=== PATIENT | female | born 2000 | race African-American/Black ===

== ENCOUNTER 2023-05-12 12:51 | Emergency (ER) | payer BC, SELFPAY ==
[2023-05-12 13:01] VITALS: BP 147/85; PULSE 75; RESP 18; TEMP 36.7; O2SAT 98
--- NOTE | 2023-05-12 13:31 | PC.NURSE ---
Dr. Ruby at bedside to assess pt.
--- NOTE | 2023-05-12 14:24 | ED.GENADULT ---
HPI - General Adult General Chief complaint: Anxiety Stated complaint: ANXIETY ATTACKS Time Seen by Provider: 05/12/23 13:11 History of Present Illness HPI narrative: Patient is a 22-year-old female who presents to the ER with anxiety. She reports that she has had a lot of stress at home related to her siblings having depression and she is only 1 working. She has no thoughts of injuring herself or harming others. No previous hospitalizations. She recently moved here from [place] which is also causing stress. She went to an urgent care and they told her they were unable to help her with her mental health. Review of Systems Review of Systems: All systems reviewed & are unremarkable except as noted in HPI and below Constitutional: Constitutional: Denies chills and Denies fever(s) Gastrointestinal: Gastrointestinal: Denies abdominal pain, Denies nausea and Denies vomiting Psychiatric: Psychiatric: Reports anxiety, Reports depression, Denies homicidal ideation and Denies suicidal ideation PMFSH Past Medical History Medical History (Updated 05/12/23 @ 18:59 by Dwayne Ruby MD) Healthy female adult Surgical History Surgical History (Updated 05/12/23 @ 18:59 by Dwayne Ruby MD) H/O anterior cruciate ligament surgery Left side Social History Social History Substance use type: does not use Exam Narrative: GENERAL: Well-appearing, well-nourished, and in no acute distress. HEAD: Normocephalic, atraumatic. EYES: PERRL and EOMI. ENT: Mucous membranes moist. CHEST: Clear to auscultation. No respiratory distress. HEART: Regular rate and rhythm. Normal peripheral pulses. EXTREMITIES: Normal range of motion. No edema. NEURO: Alert and oriented x3. PSYCH: Normal mood and affect. Course Course Emergency Course: Patient given resources for [facility]. No active mental health crisis to warrant further evaluation. Vital Signs Vital signs: Vital Signs Temperature 98.1 F 05/12/23 13:01 Pulse Rate 75 05/12/23 13:01 Respiratory Rate 18 05/12/23 13:01 Blood Pressure 147/85 H 05/12/23 13:01 Pulse Oximetry 98 05/12/23 13:01 Oxygen Delivery Room Air 05/12/23 13:01 Temperature 98.1 F 05/12/23 13:01 Pulse Rate 75 05/12/23 13:01 Respiratory Rate 18 05/12/23 13:01 Blood Pressure 147/85 H 05/12/23 13:01 Pulse Oximetry 98 05/12/23 13:01 Oxygen Delivery Room Air 05/12/23 13:01 Medical Decision Making Vital Signs Vital Signs: Vital Signs Temperature 98.1 F 05/12/23 13:01 Pulse Rate 75 05/12/23 13:01 Respiratory Rate 18 05/12/23 13:01 Blood Pressure 147/85 H 05/12/23 13:01 Pulse Oximetry 98 05/12/23 13:01 Oxygen Delivery Room Air 05/12/23 13:01 Temperature 98.1 F 05/12/23 13:01 Pulse Rate 75 05/12/23 13:01 Respiratory Rate 18 05/12/23 13:01 Blood Pressure 147/85 H 05/12/23 13:01 Pulse Oximetry 98 05/12/23 13:01 Oxygen Delivery Room Air 05/12/23 13:01 Discharge Plan Discharge Clinical Impression: Anxiety with depression Patient Disposition: Home, Self-Care Condition: Stable Instructions: Depression (ED), Anxiety (ED) Additional Instructions: You may contact [facility] at [phone] at 6 AM daily to request a mental health assessment with same-day scheduling. If you tried this multiple times and failed to get an appointment you may dial [phone] for a crisis appointment. Return to the ER if you have thoughts of harming yourself or others, you you have fever over 100.4 ?F, you have additional concerns. Follow-up/Referrals: PHYSICIAN,STOVE CARRIAGE OPERATOR [Primary Care Provider] -
== END 2023-05-12 14:43 | disposition home or self-care (01) ==
PROVIDERS: Emergency Provider Emergency Medicine
DX: F41.9 Anxiety disorder, unspecified (principal); F32.A Depression, unspecified
CPT/HCPCS: 99281

== ENCOUNTER 2023-05-24 12:54 | Emergency (ER) | payer BC, SELFPAY ==
[2023-05-24 12:57] VITALS: BP 144/101; PULSE 73; RESP 17; TEMP 36.4; O2SAT 100
--- NOTE | 2023-05-24 14:20 | ED.GENADULT ---
[facility] Adult General Chief complaint: Anxiety Stated complaint: anxiety/depression Time Seen by Provider: 05/24/23 13:29 Source: patient Mode of arrival: ambulatory Limitations: no limitations History of Present Illness HPI narrative: This is a 22-year-old female who presents to the ED with chief complaint of anxiety, depression, panic attacks ongoing for the past couple of weeks. She has recently moved here from [place] and is living with her brothers. She reports that she has been dealing with a lot of stress regarding her family and work. She states her brother tried to attempt suicide recently and her other brother has expressed suicidal thoughts which is causing her a great deal of stress. She reports that she was seen here couple of weeks ago and [facility] and was told Wednesday that they did not have any beds and that she would have to wait. She also reports that she tried to make a primary care doctor appointment but was unable to be seen until June 23. She expresses specific concern over her work needing a note stating that she has been seen multiple times in dealing with all of this. Denies SI or HI. Related Data Allergies Allergy/AdvReac Type Severity Reaction Status Date / Time No Known Allergies Allergy Verified 05/24/23 13:35 Review of Systems Review of Systems: All systems as dictated in [facility] Past Medical History Medical History (Updated 05/24/23 @ 14:25 by Josh Duncan PA-C) Healthy female adult Surgical History Surgical History (Updated 05/12/23 @ 18:59 by Dwayne Ruby MD) H/O anterior cruciate ligament surgery Left side Social History Social History Substance use type: does not use Exam Narrative: GENERAL: Well-appearing, well-nourished, and in no acute distress. HEAD: Normocephalic, atraumatic. EYES: PERRLA and EOMI. ENT: Nares clear, no rhinorrhea or epistaxis. Mucous membranes moist. Oropharynx without tonsillar hypertrophy exudate or other lesions. NECK: Supple. No adenopathy or masses. CHEST: No respiratory distress. Clear to auscultation. No wheezes rales or rhonchi HEART: Regular rate and rhythm. No murmur heard. Normal peripheral pulses. ABDOMEN: Soft, nontender, nondistended, normal active bowel sounds. MSK: Normal range of motion. No edema. SKIN: Warm, dry, no rash. NEURO: Alert and oriented x3. No focal deficits. PSYCH: Anxious mood. Appropriate affect. No SI. No HI Course Vital Signs Vital signs: Vital Signs Temperature 97.6 F 05/24/23 12:57 Pulse Rate 73 05/24/23 12:57 Respiratory Rate 17 05/24/23 12:57 Blood Pressure 144/101 H 05/24/23 12:57 Pulse Oximetry 100 05/24/23 12:57 Oxygen Delivery Room Air 05/24/23 12:57 Temperature 97.6 F 05/24/23 12:57 Pulse Rate 73 05/24/23 12:57 Respiratory Rate 17 05/24/23 12:57 Blood Pressure 144/101 H 05/24/23 12:57 Pulse Oximetry 100 05/24/23 12:57 Oxygen Delivery Room Air 05/24/23 12:57 Medical Decision Making MDM Narrative Medical decision making narrative: This is a 22-year-old female who presents to the ED with chief complaint of recent anxiety. She is needing a work note. Vitals are normal. Exam is benign. She does appear anxious but is not having any suicidal or homicidal ideations. She is simply here to get a work note to present to her work as she has missed several days of work with this. She is currently waiting on her PCP appointment in June as well as for the [place] [facility] to get back to her regarding the addressing her mental health concerns. A patient is very reasonable and is just requesting something to present to her work so she does not lose her job. I have written her a work note but and informed her that I cannot fill out any [facility] official paperwork. She is understanding of this. She seems to indicate that the work note I can provide today will be enough.
== END 2023-05-24 15:16 | disposition home or self-care (01) ==
LOC: ANHED 14:52
PROVIDERS: Emergency Provider Physician Assistant
DX: F41.9 Anxiety disorder, unspecified (principal)
CPT/HCPCS: 99281

== ENCOUNTER 2025-07-21 15:35 | Emergency (ER) | payer SELFPAY ==
--- OUTSIDE RECORDS SUMMARY | 2017-02-22 04:05 | XMS_ITS | Continuity of Care Document ---
Author Organization [facility] Address [address] [facility] [address] [place] [address] Phone Care Team Providers Care Terminal Clerk Name Role Phone Harley Rob MD Unavailable Unavailable Allergies, Adverse Reactions, Alerts Substance Reaction Status Criticality No Known Allergies Active No Inform ation Medications Medication Instructions Dosage Effective Dates (start - stop) Status Comments ibuprofen 200 mg capsule take 1 capsule by oral route every 6 hours as needed 200 MG - Active Procedures Procedure Date POSTOP FOLLOW-UP VISIT POSTOP FOLLOW-UP VISIT POSTOP FOLLOW-UP VISIT OFFICE/OUTPATIENT VISIT EST OFFICE/OUTPATIENT VISIT EST OFFICE/OUTPATIENT VISIT EST OFFICE/OUTPATIENT VISIT NEW Advance Directives Directive Yes / No Effective Date File Name No Information Encounters Encounter Description Practice Location Reason(s) For Visit Diagnoses Date Provider Providers Copied on Encounter [facility], [address] [place] [address], [facility], tel:[phone] [facility] Follow Up of LT ACL 3\20\17 (chief complaint) Status post reconstruction of anterior cruciate ligament 7 Darron Souza. [address] [place] [address], [id number] . tel: [phone] [facility], [address] [place] [address], [facility], tel:[phone] [facility] Status post reconstruction of anterior cruciate ligament 7 Jemima Chowdhury. [address] [place], [place] [address] [id number] . tel: [phone] [facility], [address] [facility] [address], [place], [address], [place] [phone] [facility] PO LT KNEE (chief complaint) Status post reconstruction of anterior cruciate ligament Apr-0 7 Darron Souza. [address] [place], [place], [id number] . tel: [phone] [facility], [address] [place] [address] 200, [place], [address], [place] [phone] [facility] Other spontaneous disruption of anterior cruciate ligament of left knee 7 Darron Souza. [address] [place] [address], [id number] . tel: [phone] OFFICE/OUTPA TIENT VISIT EST [facility], [address] [place] [address] 200, [place], [address], [place] [phone] [facility] Follow Up of LT KNEE (chief complaint) Complex tear of lateral meniscus of left knee as current injury, initial encounterRuptur e of anterior cruciate ligament of left knee, initial encounter 7 Jemima Chowdhury. [address] [facility] [address], [place], [place], [id number] . tel: [phone] OFFICE/OUTPA TIENT VISIT EST [facility], [address] [place] [address] 200, [place], [address], [place] [phone] [facility] LT KNEE (chief complaint) Body mass index (BMI) 28.0-28.9, adultRupture of anterior cruciate ligament of left knee, initial encounterComple x tear of lateral meniscus of left knee as current injury, initial encounter 7 Jemima Chowdhury. [address] [facility] [address], [place], [place], [id number] . tel: [phone] OFFICE/OUTPA TIENT VISIT EST [facility], [address] [place] [address] 200, [place], [address], [place] tel:[phone] [facility], [facility], initial encounter 7 Epifanio Heltonm. [address] [facility] [address], [place], [place], [id number] . tel: [phone] OFFICE/OUTPA TIENT VISIT [facility], [address] [facility] [address], [place], [address], [place] tel:[phone] [facility] Arturo Sprain of lateral collateral ligament of left knee, initial encounter 7 Tato Ayala. [address] [facility] [address], [place], [place], [id number] . tel: [phone] Family History Family Member Type Diagnosis Age At Onset No Information Payers Payer name Insurance type Covered constitution party ID Authoriza tion(s) Blue Access PPO E2 OT [id number] Social History Type Description Quantity Date Captured Comments Alcohol Use Details Unknown Caffeine Use Details Unknown Tobacco Use Status No Information Smoking Status No Information Sex Female Chief Complaint And Reason For Visit From encounter dated '02/22/2017 09:05'. Follow Up of LT ACL (chief complaint) Reason For Referral Reason For Referral No Information Plan Of Treatment Date Type Action Status Referral Ordered: MRI ANY JT LXTR C-MATRL LT knee Appointment date/timeframe: 11/25/2016 ordered Referral Ordered: KEN CRUZ COMPL 4/MORE VIEWS LT ordered History Of Present Illness Encounter Date Complaint History Of Prese nt Illness Follow Up of LT ACL 3\17 PO LT KNEE Follow Up of LT KNEE LT KNEE Functional Status Date Functional Assessmen t No Information Instructions Date Instruction Additional Infor mation Take medication as directed. Rel ated to Status post reconstruction of anterior cruciate ligament Activity as tolerated. Related t o Status post reconstruction of anterior cruciate ligament Ice as tolerated Related to Stat us post reconstruction of anterior cruciate ligament Elevate extremity above heart. R elated to Rupture of anterior cruciate ligament of left knee, initial encounter Immobilize as directed. Related to Rupture of anterior cruciate ligament of left knee, initial encounter Giving encouragement to exercise Related to Body mass index (BMI) 28.0-28.9, adult use ice as instructed Related to Complex tear of lateral meniscus of left knee as current injury, initial encounter Assessments Type Assessment Date assessment Status post reconstruction of an terior cruciate ligament Patient Care Teams Name Effective Dates (start - stop) Status Members No Information
--- OUTSIDE RECORDS SUMMARY | 2017-03-17 05:00 | XMS_ITS | Continuity of Care Document ---
Author Organization [facility] Address [address] [place] [address] [place] [id number] Phone Care Team Providers Care Reducing Machine Operator Name Role Phone Taylor MS, PT, ATC, Sheri Unavailable Karina vailable Procedures Procedure Date THERAPEUTIC EXERCISES NEUROMUSCULAR RE-ED MANUAL THERAPY FUNC ACTIVITY AQUATIC THERAPY 15 MIN HOT/COLD PACK ELECTRIC STIMULATION UNATT THERAPEUTIC EXERCISES NEUROMUSCULAR RE-ED MANUAL THERAPY FUNC ACTIVITY AQUATIC THERAPY 15 MIN HOT/COLD PACK ELECTRIC STIMULATION UNA THERAPEUTIC EXERCISES NEUROMUSCULAR RE-ED MANUAL THERAPY FUNC ACTIVITY HOT/COLD PACK ELECTRIC STIMULATION UNATT THERAPEUTIC EXERCISES NEUROMUSCULAR RE-ED MANUAL THERAPY FUNC ACTIVITY HOT/COLD PACK ELECTRIC STIMULATION UNATT THERAPEUTIC EXERCISES NEUROMUSCULAR RE-ED MANUAL THERAPY FUNC ACTIVITY ELECTRIC STIMULATION UNATT HOT/COLD PACK THERAPEUTIC EXERCISES NEUROMUSCULAR RE-ED MANUAL THERAPY FUNC ACTIVITY HOT/COLD PACK ELECTRIC STIMULATION UNATT THERAPEUTIC EXERCISES NEUROMUSCULAR RE-ED FUNC ACTIVITY ELECTRIC STIMULATION UNATT HOT/COLD PACK THERAPEUTIC EXERCISES NEUROMUSCULAR RE-ED MANUAL THERAPY FUNC ACTIVITY ELECTRIC STIMULATION UNATT THERAPEUTIC EXERCISES NEUROMUSCULAR RE-ED MANUAL THERAPY FUNC ACTIVITY HOT/COLD PACK ELECTRIC STIMULATION UNATT THERAPEUTIC EXERCISES NEUROMUSCULAR RE-ED MANUAL THERAPY FUNC ACTIVITY HOT/COLD PACK ELECTRIC STIMULATION UNATT THERAPEUTIC EXERCISES NEUROMUSCULAR RE-ED MANUAL THERAPY FUNC ACTIVITY HOT/COLD PACK ELECTRIC STIMULATION UNATT THERAPEUTIC EXERCISES NEUROMUSCULAR RE-ED MANUAL THERAPY FUNC ACTIVITY HOT/COLD PACK ELECTRIC STIMULATION UNATT [employer] THERAPEUTIC EXERCISES NEUROMUSCULAR RE-ED FUNC ACTIVITY HOT/COLD PACK ELECTRIC STIMULATION UNATT THERAPEUTIC EXERCISES NEUROMUSCULAR RE-ED MANUAL THERAPY FUNC ACTIVITY HOT/COLD PACK ELECTRIC STIMULATION UNATT THERAPEUTIC EXERCISES NEUROMUSCULAR RE-ED MANUAL THERAPY FUNC ACTIVITY HOT/COLD PACK ELECTRIC STIMULATION UNATT PT Re-Evaluation THERAPEUTIC EXERCISES HOT/COLD PACK THERAPEUTIC EXERCISES NEUROMUSCULAR RE-ED FUNC ACTIVITY HOT/COLD PACK ELECTRIC STIMULATION UNATT [employer] THERAPEUTIC EXERCISES NEUROMUSCULAR RE-ED FUNC ACTIVITY HOT/COLD PACK ELECTRIC STIMULATION UNATT THERAPEUTIC EXERCISES NEUROMUSCULAR RE-ED FUNC ACTIVITY HOT/COLD PACK ELECTRIC STIMULATION UNATT PT Evaluation Low Complexity THERAPEUTIC EXERCISES HOT/COLD PACK ELECTRIC STIMULATION UNATT Advance Directives Directive Yes / No Effective Date File Name No Information Encounters Encounter Description Practice Location Reason(s) For Visit Diagnoses Date Provider Providers Copied on Encounter [address], [id number], tel:[phone] [place] No Information Brandon Wade. [address] [place] [address], [facility], . tel:[phone] Referring Provider: Harley Pack, [address], [facility]. tel:[phone], [id number], tel:[phone] [place] No Information Tyrese pennington [address] [place] [address], [address], [facility], . tel:[phone] Referring Provider: Harley Pack, [address] [facility] [address], [place], [facility]. tel:[phone], [id number], tel:[phone] [place] No Information Tyrese pennington [address] [place] [address], [address], [place], [facility], . tel:[phone] Referring Provider: Harley Pack, [address], [place], [address]. tel:[phone] [address], [place], [place], [id number], tel:[phone] [place] No Information February-1 6-201 7 Tyrese pennington [address] [place] [address], [address], [place], [facility], . tel:[phone] Referring Provider: Harley Pack, [address], [place], [address]. tel:[phone] [address] [place] [address], [id number], tel:[phone] [place] No Information 1- 7 Misael Terrazas. [address] [place] [address], [address], [place], [facility], . tel:[phone] Referring Provider: Harley Pack, [address], [place], [address]. tel:[phone] [address] [place] [address], [id number], tel:[phone] [place] No Information February-0 9-201 7 Tyrese pennington [address] [place] [address], [address], [place], [facility], . tel:[phone] Referring Provider: Harley Pack, [address], [place], [address]. tel:[phone] [address], [place], [id number], tel:[phone] [place] No Information May-0 4-201 7 Misael Terrazas. [address] [place] [address], [address], [place], [facility], . tel:[phone] Referring Provider: Harley Pack, [address], [place], [address]. tel:[phone], [place], [place], [id number], tel:[phone] [place] No Information February-0 2-201 7 Tyrese pennington [address] [place] [address], [address], [place], [facility], . tel:[phone] Referring Provider: Harley Pack, [address] [facility] [address], [place], [address]. tel:[phone] [address], [place], [place], [id number], tel:[phone] [place] No Information Jan-2 7- 7 Tyrese pennington [address] [place] [address], [address], [place], [place], [facility], . tel:[phone] Referring Provider: Harley Pack, [address] [place] [address] [address], [place], [address]. tel:[phone] [address], [place], [place], [id number], tel:[phone] [place] No Information Jan-2 5- 7 Misael Terrazas. [address] [place] [address], [address], [place], [place], [facility], . tel:[phone] Referring Provider: Harley Pack, [address] [facility] [address], [place], [address]. tel:[phone] [address], [place], [place], [id number], tel:[phone] [place] No Information Jan-2 0-201 7 Tyrese pennington [address] [place] [address], [address], [place], [place], [facility], . tel:[phone] Referring Provider: Harley Pack, [address] [facility] [address], [place], [address]. tel:[phone] [address], [place], [place], [id number], tel:[phone] [place] No Information 7 Misael Terrazas. [address] [place] [address], [address], [place], [place], [facility], [place]. tel:[phone] Referring Provider: Harley Pack, [address] [facility] [address], [place], [address]. tel:[phone] [address], [place], [place], [id number], tel:[phone] [place] No Information Jan-1 7 Misael Terrazas. [address] [place] [address], [address], [place], [place], [facility], [place]. tel:[phone] Referring Provider: Harley Pack, [address] [facility] [address], [place], [facility]. tel:[phone] [address], [place], [place], [id number], [place] tel:[phone] [place] No Information 7 Tyrese pennington [address] [place] [address], [address], [place], [facility], [place]. tel:[phone] Referring Provider: Harley Pack, [address] [facility] [address], [place], [address]. tel:[phone] [address], [place], [place], [id number], [place] tel:[phone] [place] No Information Jan-0 7 Tyrese pennington [address] [place] [address], [address], [place], [facility], [place]. tel:[phone] Referring Provider: Harley Pack, [address] [facility] [address], [place], [address]. tel:[phone] [address], [place], [place], [id number], tel:[phone] [place] No Information Apr-0 6 7 Misael Terrazas. [address] [place] [address], [address], [place] [address], [place]. tel:[phone] Referring Provider: Harley Pack, [address] [facility] [address], [place], [address]. tel:[phone] [address], [place], [place], [id number], tel:[phone] [place] No Information Mar-1 6-201 7 Misael Terrazas. [address] [place] [address], [address] [address], . tel:[phone] Referring Provider: Harley Pack, [address] [facility] [address], [place], [address]. tel:[phone] [address] [facility], [place], [place], [id number], tel:[phone] [place] No Information Mar-1 4-201 7 Misael Terrazas. [address] [place] [address], [address] [address], . tel:[phone] Referring Provider: Harley Pack, [address] [facility] [address], [place], [address]. tel:[phone] [place] [address], [place], [place], [id number], tel:[phone] [place] No Information Mar-0 7-201 7 Misael Terrazas. [address] [place] [address], [address] [place] [address], . tel:[phone] Referring Provider: Harley Pack, [address] [facility] [address], [place], [facility]. tel:[phone] [address], [place], [place], [id number], tel:[phone] [place] Difficulty in walking, not elsewhere classifiedPain in left kneeStiffness of left knee, not elsewhere classifiedWeakness Sprain of anterior cruciate ligament of left knee, subsComplex tear of lat mensc, current injury, left knee, subs Mar-0 3-201 7 Misael Terrazas. [address] [place] [address], [address], [place], [address], . tel: [phone] Referring Provider: Harley Pack, [address], [place], [address]. tel:[phone] Family History Family Member Type Diagnosis Age At Onset No Information Payers Payer name Insurance type Covered constitution party ID Authorwillow roblero(s) [facility] Jeancarlos LAZARO [id number] RX O NLY Social History Type Description Quantity Date Captured Comments Sex Female Smoking Status No Information Chief Complaint And Reason For Visit No Information Reason For Referral Reason For Referral No Information History Of Present Illness Encounter Date Complaint History Of Prese nt Illness No Information Functional Status Date Functional Assessmen t No Information Instructions Date Instruction Additional Infor mation No Information Assessments Type Assessment Date No Information Patient Care Teams Name Effective Dates (start - stop) Status Members No Information
--- NOTE | ~2025-07-21 | XR_ITS ---
EXAMINATION: XR chest 2V, 07/21/2025 16:35 CDT HISTORY: cough COMPARISON: No comparisons available. Technique: 2 views obtained. Findings: The lungs are clear, no effusion. No pneumothorax. Heart is normal size. Mediastinal and hilar contours are within normal limits. Bony thorax no acute abnormality. Impression: No acute cardiopulmonary abnormality. Reviewed, dictated and finalized at location P. Impression: No acute cardiopulmonary abnormality.
[2025-07-21 15:37] VITALS: BP 142/70; PULSE 72; RESP 18; TEMP 36.6; O2SAT 100
--- NOTE | 2025-07-21 16:20 | ED_ITS ---
HPI - URI/Sore Throat General Chief Complaint: Upper Respiratory Infection Stated Complaint: lost her voice Time Seen by Provider: 07/21/25 15:45 History of Present Illness HPI Narrative: Patient is a 24-year-old female who presents to the ER with complaints of laryngitis. She reports on Wednesday her throat felt funny. Patient reports on Wednesday she started losing her voice. She reports her throat is sore now and endorses a slight cough along with increased mucus. Patient denies any headache, recent fevers, back pain, or abdominal pain. She denies any medical history relevant to this ER visit. Related Data Allergies Allergy/AdvReac Type Severity Reaction Status Date / Time No Known Allergies Allergy Verified 05/24/23 13:35 Review of Systems Review of Systems: All systems reviewed & are unremarkable except as noted in HPI and below PMFSH Past Medical History Medical History Healthy female adult Surgical History Surgical History H/O anterior cruciate ligament surgery Left side Social History Social History Substance use type: does not use Exam 2 Narrative: GENERAL: Well appearing, well-nourished, non-toxic, in no acute distress. HEAD: Normocephalic, atraumatic. NECK: Supple. No adenopathy, no masses. RESPIRATORY: Airway patent, respirations nonlabored. Clear to auscultation bilaterally, no rales, rhonchi, wheezing. CARDIOVASCULAR: Regular rate and rhythm without murmurs, rubs, or gallops. Peripheral pulses 2+ and equal bilaterally. ABDOMINAL: Soft, nontender, nondistended, no hepatosplenomegaly. Normoactive BS. MUSCULOSKELETAL: Moves all extremities. Strength/ROM intact without gross deformities. SKIN: Warm, dry, normal color. No rashes. NEURO: A&O X3. Speech clear. Cranial nerves II-XII intact. No ataxic movements. PSYCHIATRIC: Appropriate mood and affect. Normal interaction. Course Vital Signs Vital signs: Vital Signs Temperature 36.6 C 07/21/25 15:37 Pulse Rate 72 07/21/25 15:37 Respiratory Rate 18 07/21/25 15:37 Blood Pressure 142/70 H 07/21/25 15:37 Pulse Oximetry 100 07/21/25 15:37 Oxygen Delivery Room Air 07/21/25 15:37 Temperature 36.6 C 07/21/25 15:37 Pulse Rate 72 07/21/25 15:37 Respiratory Rate 18 07/21/25 15:37 Blood Pressure 142/70 H 07/21/25 15:37 Pulse Oximetry 100 07/21/25 15:37 Oxygen Delivery Room Air 07/21/25 15:37 MDM - URI/Sore Throat MDM Narrative Medical decision making narrative: Patient is a 24-year-old female who presents to the ER with complaints of laryngitis. She reports on Wednesday her throat felt funny. Patient reports on Wednesday she started losing her voice. She reports her throat is sore now and endorses a slight cough along with increased mucus. Patient denies any headache, recent fevers, back pain, or abdominal pain. She denies any medical history relevant to this ER visit. Labs Ordered: COVID/flu/RSV swab, strep swab Imaging Ordered: Chest x-ray Medications Ordered: Patient declined Results: Patient's chest x-ray indicates No acute cardiopulmonary abnormality. Diagnosis: Upper respiratory infection, laryngitis Consults: ENT (outpatient) Patient Education/Shared MDM: Results of lab work shared with patient. She continues to declines medication administration to treat her symptoms. Patient strongly advised to maintain hydration status upon discharge and follow-up with her PCP as soon as possible. She reports she has been singing more lately and is wondering if her symptoms are related to that. Patient advised to follow-up with ear nose and throat if her symptoms do not improve in a week or two. She was offered prescription to treat her symptoms but declined. Patient advised Tylenol and/or ibuprofen to treat her symptoms. Strict return precautions provided. Patient verbalized understanding and is in agreement with plan. Vital signs stable at time of discharge. All questions answered. Differential Diagnosis Differential diagnosis: Likely upper respiratory infection, sinusitis, viral infection, bronchitis and influenza Lab Data Attestation: I reviewed the patient's lab results. Labs: Lab Results 07/21/25 07/21/25 Range/Units 16:25 16:26 Influenza A (RT-PCR) Negative (Negative) Influenza B (RT-PCR) Negative (Negative) RSV (RT-PCR) Negative (Negative) SARS-CoV-2 RNA (RT-PCR) Negative (Negative) Group A Strep (PCR) Not detected (Negative) Imaging Data Attestation: I personally reviewed and interpreted this imaging study as follows: Radiologist's impression: Impressions Chest X-Ray 07/21/25 16:45 Impression: No acute cardiopulmonary abnormality. Discharge Plan Discharge Clinical Impression: Upper respiratory infection, Laryngitis Patient Disposition: Home Condition: Stable Instructions: Antibiotic Form, Upper Respiratory Infection (ED) Additional Instructions: Please return to the ER with any worsening symptoms. Follow-up with primary care provider as needed. If your symptoms do not improve in a week or two please follow-up with ear nose and throat. You may take Tylenol and Ibuprofen as needed for pain control. Patient Language: Maltese Follow-up/Referrals: Eulalio Quiroz MD [Physician, Ear, Nose, Throat] Referral Note: ENT PHYSICIAN,MECHANICAL ENGINEERING MANAGER [Primary Care Provider, Internal Medicine] Stand Alone Forms: Work/School Release IP Time of Disposition: 18:08
[2025-07-21 16:56] LABS: Strep Group A RT-PCR NOT DETECTED (Negative)
[2025-07-21 17:07] LABS: Influenza A QL RT-PCR Negative (Negative); Influenza B QL RT-PCR Negative (Negative); RSV RNA, RT-PCR Negative (Negative); SARS-CoV-2 RNA PCR Negative (Negative)
== END 2025-07-21 18:16 | disposition home or self-care (01) ==
PROVIDERS: Emergency Provider Registered Nurse
DX: J06.9 Acute upper respiratory infection, unspecified (principal); J04.0 Acute laryngitis; Z20.822 Contact with and (suspected) exposure to COVID-19
CPT/HCPCS: 71046; 87637; 87651; 99283